=== PATIENT | male | born 1995 | race Caucasian/White ===

== ENCOUNTER 2024-10-05 14:39 | Emergency (ER) | payer SELFPAY ==
[2024-10-05 14:54] VITALS: BP 162/77; PULSE 45; RESP 18; TEMP 36.3; O2SAT 99
[2024-10-05 16:00] VITALS: BP 169/70; PULSE 46; O2SAT 97
--- NOTE | 2024-10-05 16:22 | ED_ITS ---
HPI - Abdominal Pain 2 General: Chief Complaint: Abdominal Pain Stated Complaint: sick and puking since 3am(pt. deaf) Time Seen by Provider: 10/05/24 16:03 History of Present Illness: 28-year-old man who presents to the [facility] room with diffuse abdominal pain, nausea and vomiting. He says he is had episodes of this in the past. He is deaf. He says he does smoke marijuana. This been going on since about 3 AM. No fevers. No altered mental status. No diarrhea. Related Data Previous Rx's Medication Instructions Recorded ondansetron 8 mg disintegrating 8 mg PO Q6H #14 tabs 10/05/24 tablet promethazine 25 mg rectal 25 mg [place] Q6H PRN nausea and 10/05/24 suppository vomiting #12 ea Allergies Allergy/AdvReac Type Severity Reaction Status Date / Time No Known Allergies Allergy Verified 10/05/24 14:58 Review of Systems 2 Narrative: Constitutional symptoms: Negative except as documented in HPI. Skin symptoms: Negative except as documented in HPI. Eye symptoms: Negative except as documented in HPI. ENMT symptoms: Negative except as documented in HPI. Respiratory symptoms: Negative except as documented in HPI. Cardiovascular symptoms: Negative except as documented in HPI. Gastrointestinal symptoms: Negative except as documented in HPI. Genitourinary symptoms: Negative except as documented in HPI. Musculoskeletal symptoms: Negative except as documented in HPI. Neurologic symptoms: Negative except as documented in HPI. Psychiatric symptoms: Negative except as documented in HPI. Endocrine symptoms: Negative except as documented in HPI. Physical Exam 2 Narrative: EXAM NARRATIVE: General: Alert Skin: Warm, dry. Head: Normocephalic, atraumatic. Neck: Supple, trachea midline. Eye: Extraocular movements are intact. Ears, nose, mouth and throat: mucosa moist. Cardiovascular: Regular, Normal peripheral perfusion. Respiratory: Lungs are clear to auscultation, respirations are non-labored, breath sounds are equal, Symmetrical chest wall expansion. Gastrointestinal: Soft, diffuse nonfocal abdominal pain, actively vomiting, Non distended Musculoskeletal: Normal ROM, no deformity. Neurological: Alert and oriented, No focal neurological deficit observed. Psychiatric: Cooperative, appropriate mood & affect. Course 2 Vital Signs: Vital signs: Vital Signs Temperature 97.4 F L 10/05/24 14:54 Pulse Rate 63 11/08/24 17:30 Respiratory Rate 18 10/05/24 14:54 Blood Pressure 164/113 10/05/24 17:00 Pulse Oximetry 98 10/05/24 17:30 MDM - Abdominal Pain Medical Decision Making Medical decision making: Differential diagnosis for this patient with nausea and vomiting including but not limited to and based on the above HPI, review of systems and physical exam: Urinary tract infection. Appendicitis. Cholecystis. colitis. small bowel obstruction. crohn's flare. pancreatitis. gastritis. peptic ulcer. cyclic vomiting. Viral illness. Influenza. COVID. - Workup - labwork and imaging ordered to evaluate, rule in and rule out above pathologies. Lab Review: Laboratory results were reviewed and interpreted by myself the emergency room physician. Mild leukocytosis but CRP is negative so likely no intra-abdominal infections such as appendicitis. No renal failure. Urine is negative for infection but positive for marijuana. I reviewed the patient's medical record. Reexamination: Patient has improved somewhat. He still feels somewhat nauseous some giving some more nausea medicine before discharge. We discussed on paper that this could be a result of marijuana as it is recurrent. Also could be a gastroenteritis. Either way I want him to follow-up with his primary when he returns home. He is visiting from [place]. Assessment and plan: Nausea and vomiting ?8 mg Zofran, 30 mg Toradol IV. Then IV Compazine and Benadryl. He was sleeping when I came back in and no longer vomiting. Says he still feels somewhat nauseous so giving another dose of Zofran. Sending home with p.o. Zofran and [place] Phenergan - Discharged home - Discussed plan with patient. Answered any questions. - Evaluation and treatment of this problem were appropriate in the emergency setting. Lab Data 10/05/24 16:36 10/05/24 16:36 Labs/Radiology: Laboratory Results WBC 15.50 10^3/uL (3.29-11.43) H 10/05/24 16:36 RBC 5.32 10^6/uL (3.85-5.65) 10/05/24 16:36 Hgb 16.50 g/dL (11.27-16.99) 10/05/24 16:36 Hct 47.1 % (37-53) 10/05/24 16:36 MCV 88.5 fl (82-101) 10/05/24 16:36 MCH 31.0 pg (27-33) 10/05/24 16:36 MCHC 35.0 g/dL (30-55) 10/05/24 16:36 RDW 12.7 % (12.1-15.1) 10/05/24 16:36 Plt Count 221 10^3/cmm (157-399) 10/05/24 16:36 MPV 8.9 fL (7.4-10.4) 10/05/24 16:36 Neut % (Auto) 92.5 % 10/05/24 16:36 Lymph % (Auto) 5.0 % 10/05/24 16:36 [place] % (Auto) 2.0 % 10/05/24 16:36 Eos % (Auto) 0.1 % 10/05/24 16:36 Baso % (Auto) 0.1 % 10/05/24 16:36 Neut # (Auto) 14.35 10^3/uL (1.8-7.7) H 10/05/24 16:36 Lymph # (Auto) 0.8 10^3/uL (0.8-4.8) 10/05/24 16:36 [place] # (Auto) 0.3 10^3/uL (0.2-0.9) 10/05/24 16:36 Eos # (Auto) 0.0 10^3/uL (0.0-0.8) 10/05/24 16:36 Baso # (Auto) 0.0 10^3/uL (0.0-0.1) 10/05/24 16:36 Nucleated RBC % (auto) 0 % 10/05/24 16:36 Nucleated RBCs # 0.0 /100WBC 10/05/24 16:36 Sodium 138 mmol/L (136-145) 10/05/24 16:36 Potassium 3.9 mmol/L (3.5-5.1) 10/05/24 16:36 Chloride 99 mmol/L (98-107) 10/05/24 16:36 Carbon Dioxide 22 mmol/L (22-29) 10/05/24 16:36 Anion Gap 20.9 (5-19) H 10/05/24 16:36 BUN 13 mg/dL (6-20) 10/05/24 16:36 Creatinine 0.8 mg/dL (0.7-1.2) 10/05/24 16:36 GFR Calculation 116.0 mL/min (90-130) 10/05/24 16:36 Glucose 145 mg/dL (65-115) H 10/05/24 16:36 Calculated Osmolality 289 mOsm/kg (285-295) 10/05/24 16:36 Calcium 9.6 mg/dL (8.5-10.5) 10/05/24 16:36 Total Bilirubin 0.5 mg/dL (0.15-1.2) 10/05/24 16:36 AST 16 U/L (0-40) 10/05/24 16:36 ALT 15 U/L (0-41) 10/05/24 16:36 Alkaline Phosphatase 60 U/L (40-130) 10/05/24 16:36 C-Reactive Protein 3.0 mg/L (0.0-4.9) 10/05/24 16:36 Total Protein 7.8 g/dL (6.6-8.7) 10/05/24 16:36 Albumin 5.3 g/dL (3.5-5.2) H 10/05/24 16:36 Globulin 2.5 g/dL (1.3-4.6) 10/05/24 16:36 Lipase 48 U/L (13-60) 10/05/24 16:36 Amorphous Sediment Not Reportable 10/05/24 17:45 Urine Opiates Screen Negative ng/mL (Negative) 10/05/24 17:45 Ur Barbiturates Screen Negative ng/mL (Negative) 10/05/24 17:45 Ur Phencyclidine Scrn Negative ng/mL (Negative) 10/05/24 17:45 Ur Amphetamines Screen Negative ng/mL (Negative) 10/05/24 17:45 U Benzodiazepines Scrn Negative ng/mL (Negative) 10/05/24 17:45 Urine Cocaine Screen Negative ng/mL (Negative) 10/05/24 17:45 U Marijuana (THC) Screen Positive ng/mL (Negative) H 10/05/24 17:45 All radiology interpretation(s) finalized by discharge Discharge Plan Discharge Patient Disposition: Home Clinical Impression: Vomiting Condition: Stable Prescriptions: New promethazine 25 mg suppository 25 mg [place] Q6H PRN (Reason: nausea and vomiting) Qty: 12 0RF ondansetron 8 mg tablet,disintegrating 8 mg PO Q6H Qty: 14 0RF Rx Instructions: Take 1/2-1 tab every 6 hours as needed for nausea and vomiting Discharge Orders: Discharge ED (Routine); Ordered 10/05/24 Ordered By: Jasmin Lopez Discharge Diet: Advance as tolerated Discharge Activity: Increase activity as tolerated Patient Instructions: Acute Nausea and Vomiting (ED), Opioid Safety, Pain Management Activity Restrictions/Additional Instructions: Thank you for choosing [facility] [place] for your healthcare needs today. Please realize this is an emergency room and that we are providing you with a medical screening exam and this may not be complete and all inclusive of all the testing and or work up that you may need to determine your ailment or severity of your illness. You have been screened and evaluated and felt safe for discharge. Health conditions do change or evolve sometimes and as such it is important that you follow up with your Primary Doctor to be re checked, 3-5 days is a general good time frame for follow up. You are always welcome to return to the ED for re assessment if your symptoms are worsening or you have new concerns Coding Level of Care Code ED Cotton Presser for Bairon Morrison
[2024-10-05 16:30] VITALS: BP 156/83; PULSE 46; O2SAT 97
[2024-10-05] MEDS: ondansetron 2 mg/ML SDV 2 mL 8 MG IVP ×2 (16:32→18:51)
[2024-10-05] MEDS: ketorolac 30 mg/mL INJ IVP (16:34)
[2024-10-05 16:46] LABS: Basophils % 0.1 %; Eosinophils % 0.1 %; Hematocrit 47.1 % (37-53); Lymphocytes # 0.8 10^3/uL (0.8-4.8); Mean Corpuscular Volume 88.5 fl (82-101); Mean Platelet Volume 8.9 fL (7.4-10.4); Monocytes # 0.3 10^3/uL (0.2-0.9); Neutrophils # 14.35 10^3/uL (1.8-7.7); Neutrophils % 92.5 %; Nucleated Red Blood Cells % 0 %; Platelet Count 221 10^3/cmm (157-399); Red Blood Count 5.32 10^6/uL (3.85-5.65); Red Cell Distribution Width 12.7 % (12.1-15.1)
[2024-10-05 17:00] VITALS: BP 164/113; PULSE 61; O2SAT 99
[2024-10-05 17:08] LABS: Alanine Aminotransferase 15 U/L (0-41); Albumin Level 5.3 g/dL (3.5-5.2); Alkaline Phosphatase 60 U/L (40-130); Anion Gap 20.9 (5-19); Aspartate Amino Transferase 16 U/L (0-40); Blood Urea Nitrogen 13 mg/dL (6-20); Calcium 9.6 mg/dL (8.5-10.5); Carbon Dioxide 22 mmol/L (22-29); Chloride 99 mmol/L (98-107); Creatinine Clr Calc Pharmacy 159.6831; Globulin 2.5 g/dL (1.3-4.6); Glucose 145 mg/dL (65-115); Lipase 48 U/L (13-60); Osmolality Calculated 289 mOsm/kg (285-295); Potassium 3.9 mmol/L (3.5-5.1); Sodium 138 mmol/L (136-145); Total Bilirubin 0.5 mg/dL (0.15-1.2); Total Protein 7.8 g/dL (6.6-8.7)
[2024-10-05 17:30] VITALS: PULSE 63; O2SAT 98
[2024-10-05] MEDS: prochlorperazine 10 mg/2 mL Inj IVP (17:48)
[2024-10-05] MEDS: diphenhydrAMINE 50 mg/mL SDV 1mL IVP (17:50)
[2024-10-05 17:56] LABS: Bilirubin Urine Negative (Negative); Blood Urine Trace (Negative); Glucose Urine UA Negative (Normal); Ketones Urine 4+ (Negative); Leukocyte Esterase Urine Negative (Negative); Nitrate Urine Negative (Negative); Protein Urine 3+ (Negative); Urine Appearance Clear (CLEAR); Urine Color Dark Yellow (Yellow)
[2024-10-05 17:58] LABS: Bacteria Urine None Seen /hpf; Hyaline Casts Urine 4.11 /lpf; Squamous Epithelial Cell Urine 0-5 /hpf (0-5); WBC Urine 0-5 /hpf (0-5)
[2024-10-05 18:02] LABS: Amphetamines Screen Urine Negative (Negative); Barbiturates Screen Urine Negative (Negative); Benzodiazepines Screen Urine Negative (Negative); Cocaine Screen Urine Negative (Negative); Opiate Screen Urine Negative (Negative); PCP Screen Urine Negative (Negative); THC Screen Urine Positive (Negative)
[2024-10-05 18:41] LABS: Specific Gravity, Urine 1.041 (1.005-1.030)
[2024-10-05 18:54] VITALS: BP 147/86; PULSE 92; O2SAT 96
== END 2024-10-05 18:55 | disposition home or self-care (01) ==
PROVIDERS: Emergency Provider Emergency Medicine
DX: R11.10 Vomiting, unspecified (principal)
CPT/HCPCS: 36415; 80053; 80306; 81001; 83690; 85025; 86140; 96374; 96375; 96376; 99284; J0780; J1200; J1885; J2405